=== PATIENT | male | born 1950 | race Two or more races ===

== ENCOUNTER 2021-07-09 15:09 | Inpatient (IN) | payer OTHER ==
[~2021-07-09] VITALS: Ht 177.8 cm; Wt 77.7 kg
[2021-07-09 15:36] LABS: Eosinophils # (auto) 0.1 10 ^3/uL (0-0.8); Monocytes # (auto) 0.4 10 ^3/uL (0-1.3); Nucleated Red Blood Cells % 0.1 %; White Blood Cell 5.5 10^3/uL (4.4-10.8)
[2021-07-09 15:38] LABS: Basophils # (auto) 0 10 ^3/uL (0-0.2); Basophils % (auto) 0.7 % (0.0-2.0); Eosinophils % (auto) 1.3 % (0.0-7.0); Hematocrit 31.3 % (41.0-53.0); Hemoglobin 9.6 g/dL (13.5-17.5); Lymphocytes # (auto) 0.6 10 ^3/uL (0.4-5.4); Lymphocytes % (auto) 11.7 % (10.0-50.0); Mean Corpuscular Hemoglobin 22.7 pg (28.0-32.0); Mean Corpuscular Hgb Conc. 30.7 g/dL (32.0-36.0); Mean Corpuscular Volume 73.9 fL (80.0-100.0); Monocytes % (auto) 6.8 % (0.0-12.0); Neutrophils # (auto) 4.4 10 ^3/uL (1.6-8.6); Neutrophils % (auto) 79.5 % (37.0-80.0); Red Blood Cells 4.24 10^6/uL (4.5-5.90); Red Cell Distribution Width 19.1 % (11.8-14.3)
[2021-07-09 15:59] LABS: Albumin 3.5 g/dL (3.4-5.0); Calcium 8.6 mg/dL (8.5-10.1); Magnesium 2.8 mg/dL (1.6-2.6); Potassium 4.4 mmol/L (3.5-5.1)
[2021-07-09] MEDS ORDERED: MORPHINE SULFATE INJECTION 2 MG/ML SYRG IM ONE (16:00)
[2021-07-09] MEDS ORDERED: ASPirin 81 mg TAB PO ONE (16:00)
[2021-07-09] MEDS ORDERED: SODIUM CHLORIDE 0.9% 500 ML IV ONE (16:00)
[2021-07-09] MEDS ORDERED: NITROGLYCERIN 0.4 MG SL TAB SL ONE (16:00)
[2021-07-09 16:18] LABS: BUN/Creatinine Ratio 18.5; Bilirubin, Total 0.6 mg/dL (0.2-1.0); Total Protein 7.3 g/dL (6.4-8.2)
[2021-07-09] MEDS ORDERED: ALPRAZolam 0.5 MG TAB PO ONE (17:00)
[2021-07-09 21:37] LABS: Urine Bacteria NONE SEEN /hpf (None Seen); Urine WBC 8 /hpf (0 - 3)
[2021-07-09 21:45] LABS: Urine Blood Trace /uL (Negative)
[2021-07-09] MEDS ORDERED: hydrALAZINE HCL 20 MG/ML VL IV PRN (23:00)
[2021-07-09] MEDS ORDERED: LORazepam 2MG/ML-1ML VIAL IV PRN (23:00)
[2021-07-09] MEDS ORDERED: cefTRIAXone 1GM/50ML D5W 50 ML IV ONE (23:00)
[2021-07-09] MEDS ORDERED: MORPHINE SULFATE 4 MG/ML SYR/VIAL IV PRN (23:00)
[2021-07-09] MEDS ORDERED: ACETAMINOPHEN 325 MG TAB PO PRN (23:00)
[2021-07-09] MEDS ORDERED: DOCUSATE SOD 100 MG CAP PO PRN (23:00)
[2021-07-09] MEDS ORDERED: HYDROcodone-ACET 5/325MG TAB PO PRN (23:00)
[2021-07-09] MEDS ORDERED: ONDANSETRON HCL 4 MG/2 ML VIAL IV PRN (23:00)
[2021-07-10] MEDS ORDERED: MORPHINE SULFATE INJECTION 2 MG/ML SYRG IV PRN
[2021-07-10 01:30] VITALS: BP 103/64
[2021-07-10 05:28] LABS: Eosinophils # (auto) 0.2 10 ^3/uL (0-0.8); Nucleated Red Blood Cells % 0.1 %
[2021-07-10 05:31] LABS: Basophils # (auto) 0.1 10 ^3/uL (0-0.2); Basophils % (auto) 1.1 % (0.0-2.0); Eosinophils % (auto) 3.4 % (0.0-7.0); Hematocrit 30.8 % (41.0-53.0); Hemoglobin 9.8 g/dL (13.5-17.5); Mean Corpuscular Hemoglobin 23.4 pg (28.0-32.0); Mean Corpuscular Volume 73.2 fL (80.0-100.0); Monocytes # (auto) 0.6 10 ^3/uL (0-1.3); Monocytes % (auto) 10.8 % (0.0-12.0); Neutrophils # (auto) 3.9 10 ^3/uL (1.6-8.6); Neutrophils % (auto) 67.7 % (37.0-80.0); Red Blood Cells 4.21 10^6/uL (4.5-5.90); Red Cell Distribution Width 19.4 % (11.8-14.3); White Blood Cell 5.7 10^3/uL (4.4-10.8)
[2021-07-10] MEDS: SODIUM CHLOR 0.9% PF (SALINE LOCK) 10ML VIAL/SYR IV SCH ×3 (05:50→22:03)
[2021-07-10 05:51] LABS: Calcium 8.1 mg/dL (8.5-10.1); Potassium 3.9 mmol/L (3.5-5.1)
[2021-07-10 05:57] LABS: BUN/Creatinine Ratio 19.6; Bilirubin, Total 0.7 mg/dL (0.2-1.0); Total Protein 6.2 g/dL (6.4-8.2)
[2021-07-10] MEDS ORDERED: FAMOTIDINE (10MG/ML) 2ML VL IV SCH (10:00)
[2021-07-10] MEDS: ASPirin 81 mg TAB PO SCH (10:24)
[2021-07-10] MEDS: ZINC SULFATE 220mg CAP or TAB PO SCH (10:24)
[2021-07-10] MEDS: CLOPIDOGREL BISULFATE 75 MG TAB PO SCH (10:25)
[2021-07-10] MEDS: ASCORBIC ACID 500 MG TAB PO SCH ×2 (10:25→22:04)
[2021-07-10] MEDS: METOPROLOL TARTRATE 25 MG TAB PO SCH ×2 (10:25→22:04)
[2021-07-10] MEDS: MULTIPLE VITAMIN TAB PO SCH (10:25)
[2021-07-10] MEDS: ENOXAPARIN SOD 80 MG/0.8ML SYRINGE SC SCH ×2 (10:26→22:04)
[2021-07-10] MEDS: FAMOTIDINE (10MG/ML) 2ML VL IV SCH (12:00)
[2021-07-10 16:57] VITALS: BP 127/99
[2021-07-10] MEDS: cefTRIAXone 1GM/50ML D5W 50 ML IV SCH (21:21)
[2021-07-10] MEDS: ATORVASTATIN 20 MG TAB PO SCH (22:03)
[2021-07-10 22:10] VITALS: BP 144/80
[2021-07-11 05:02] LABS: Basophils # (auto) 0 10 ^3/uL (0-0.2); Basophils % (auto) 0.9 % (0.0-2.0); Eosinophils # (auto) 0.3 10 ^3/uL (0-0.8); Eosinophils % (auto) 4.8 % (0.0-7.0); Hematocrit 30.2 % (41.0-53.0); Hemoglobin 9.5 g/dL (13.5-17.5); Lymphocytes # (auto) 1.2 10 ^3/uL (0.4-5.4); Lymphocytes % (auto) 22.7 % (10.0-50.0); Mean Corpuscular Hgb Conc. 31.4 g/dL (32.0-36.0); Mean Corpuscular Volume 73.3 fL (80.0-100.0); Monocytes # (auto) 0.7 10 ^3/uL (0-1.3); Monocytes % (auto) 12.5 % (0.0-12.0); Neutrophils # (auto) 3.2 10 ^3/uL (1.6-8.6); Neutrophils % (auto) 59.1 % (37.0-80.0); Red Blood Cells 4.12 10^6/uL (4.5-5.90); Red Cell Distribution Width 19.3 % (11.8-14.3); White Blood Cell 5.4 10^3/uL (4.4-10.8)
[2021-07-11 05:04] VITALS: BP 102/60
[2021-07-11 05:15] LABS: INR 1.01 (0.9-1.15); Partial Thromboplastin Time 32.9 sec (23.6-33.0)
[2021-07-11 05:23] LABS: Calcium 8.4 mg/dL (8.5-10.1); Potassium 4.1 mmol/L (3.5-5.1)
[2021-07-11 05:28] LABS: BUN/Creatinine Ratio 21.4
[2021-07-11] MEDS: SODIUM CHLOR 0.9% PF (SALINE LOCK) 10ML VIAL/SYR IV SCH ×3 (06:17→21:31)
[2021-07-11 09:00] VITALS: BP 102/66
[2021-07-11] MEDS: ENOXAPARIN SOD 80 MG/0.8ML SYRINGE SC SCH ×2 (10:00→21:32)
[2021-07-11] MEDS: FAMOTIDINE (10MG/ML) 2ML VL IV SCH (10:00)
[2021-07-11] MEDS: CLOPIDOGREL BISULFATE 75 MG TAB PO SCH (10:00)
[2021-07-11] MEDS: ASCORBIC ACID 500 MG TAB PO SCH ×2 (10:00→21:32)
[2021-07-11] MEDS: METOPROLOL TARTRATE 25 MG TAB PO SCH ×2 (10:00→21:32)
[2021-07-11] MEDS: ZINC SULFATE 220mg CAP or TAB PO SCH (10:00)
[2021-07-11] MEDS: ASPirin 81 mg TAB PO SCH (10:00)
[2021-07-11] MEDS: MULTIPLE VITAMIN TAB PO SCH (10:00)
[2021-07-11 13:00] VITALS: BP 126/71
[2021-07-11 17:00] VITALS: BP 109/67
[2021-07-11] MEDS: cefTRIAXone 1GM/50ML D5W 50 ML IV SCH (21:00)
[2021-07-11] MEDS: ATORVASTATIN 20 MG TAB PO SCH (21:31)
[2021-07-11 22:00] VITALS: BP 113/65
[2021-07-12 04:00] VITALS: BP 110/73
[2021-07-12] MEDS: SODIUM CHLOR 0.9% PF (SALINE LOCK) 10ML VIAL/SYR IV SCH ×3 (06:16→22:22)
[2021-07-12 08:14] VITALS: BP 107/65
[2021-07-12] MEDS: MULTIPLE VITAMIN TAB PO SCH (11:15)
[2021-07-12] MEDS: METOPROLOL TARTRATE 25 MG TAB PO SCH ×2 (11:15→22:23)
[2021-07-12] MEDS: ASCORBIC ACID 500 MG TAB PO SCH ×2 (11:15→22:23)
[2021-07-12] MEDS: CLOPIDOGREL BISULFATE 75 MG TAB PO SCH (11:15)
[2021-07-12] MEDS: ASPirin 81 mg TAB PO SCH (11:15)
[2021-07-12] MEDS: FAMOTIDINE (10MG/ML) 2ML VL IV SCH (11:15)
[2021-07-12] MEDS: ZINC SULFATE 220mg CAP or TAB PO SCH (11:15)
[2021-07-12] MEDS: ENOXAPARIN SOD 80 MG/0.8ML SYRINGE SC SCH ×2 (11:15→22:00)
[2021-07-12 12:00] VITALS: BP 145/84
[2021-07-12 17:00] VITALS: BP 142/77
[2021-07-12 22:00] VITALS: BP 114/69
[2021-07-12] MEDS: cefTRIAXone 1GM/50ML D5W 50 ML IV SCH (22:22)
[2021-07-12] MEDS: ATORVASTATIN 20 MG TAB PO SCH (22:22)
[2021-07-13] VITALS (8 sets, daily range): BP systolic 93–141; BP diastolic 58–85
[2021-07-13] MEDS: SODIUM CHLOR 0.9% PF (SALINE LOCK) 10ML VIAL/SYR IV SCH ×3 (05:54→21:09)
[2021-07-13] MEDS ORDERED: IODIXANOL 320MG/ML 100ML BTL IV ONE ×2 (09:23→10:21)
[2021-07-13] MEDS ORDERED: LIDOCAINE 2%HCL (LOCAL ANESTH.) INJ 20ML MDV ONE (09:23)
[2021-07-13] MEDS ORDERED: ANGIOMAX 250 MG VIAL IV ONE (10:05)
[2021-07-13] MEDS ORDERED: fentaNYL CITRATE 100 MCG/2 ML VL ONE (10:05)
[2021-07-13] MEDS ORDERED: SODIUM CHL 0.9% 0 ML ONE (10:06)
[2021-07-13] MEDS ORDERED: MIDAZOLAM HCL 2MG/2ML 2ml VIAL (1mg/ml) ONE (10:06)
[2021-07-13] MEDS: FAMOTIDINE (10MG/ML) 2ML VL IV SCH (21:05)
[2021-07-13] MEDS: ASCORBIC ACID 500 MG TAB PO SCH ×2 (21:06→21:09)
[2021-07-13] MEDS: ZINC SULFATE 220mg CAP or TAB PO SCH (21:06)
[2021-07-13] MEDS: ENOXAPARIN SOD 80 MG/0.8ML SYRINGE SC SCH ×2 (21:06→21:09)
[2021-07-13] MEDS: MULTIPLE VITAMIN TAB PO SCH (21:06)
[2021-07-13] MEDS: cefTRIAXone 1GM/50ML D5W 50 ML IV SCH (21:07)
[2021-07-13] MEDS: ATORVASTATIN 20 MG TAB PO SCH (21:07)
[2021-07-14 05:00] VITALS: BP 118/83
[2021-07-14] MEDS: SODIUM CHLOR 0.9% PF (SALINE LOCK) 10ML VIAL/SYR IV SCH ×3 (05:14→22:00)
[2021-07-14 05:44] LABS: Basophils # (auto) 0.1 10 ^3/uL (0-0.2); Monocytes # (auto) 0.8 10 ^3/uL (0-1.3)
[2021-07-14 05:52] LABS: Basophils % (auto) 1.1 % (0.0-2.0); Eosinophils # (auto) 0.4 10 ^3/uL (0-0.8); Eosinophils % (auto) 5.6 % (0.0-7.0); Hematocrit 29.9 % (41.0-53.0); Hemoglobin 9.6 g/dL (13.5-17.5); Lymphocytes # (auto) 0.7 10 ^3/uL (0.4-5.4); Lymphocytes % (auto) 11.5 % (10.0-50.0); Mean Corpuscular Hemoglobin 23.5 pg (28.0-32.0); Mean Corpuscular Hgb Conc. 32.2 g/dL (32.0-36.0); Mean Corpuscular Volume 73.1 fL (80.0-100.0); Monocytes % (auto) 12.2 % (0.0-12.0); Neutrophils # (auto) 4.4 10 ^3/uL (1.6-8.6); Neutrophils % (auto) 69.6 % (37.0-80.0); Red Blood Cells 4.09 10^6/uL (4.5-5.90); Red Cell Distribution Width 19.9 % (11.8-14.3); White Blood Cell 6.3 10^3/uL (4.4-10.8)
[2021-07-14 05:59] LABS: INR 0.96 (0.9-1.15); Partial Thromboplastin Time 30.3 sec (23.6-33.0)
[2021-07-14 06:08] LABS: BUN/Creatinine Ratio 19.7; Calcium 8.5 mg/dL (8.5-10.1); Magnesium 2.3 mg/dL (1.6-2.6); Potassium 4.4 mmol/L (3.5-5.1)
[2021-07-14 09:23] VITALS: BP 105/62
[2021-07-14] MEDS: ASPirin 81 mg TAB PO SCH (09:27)
[2021-07-14] MEDS: FAMOTIDINE (10MG/ML) 2ML VL IV SCH (09:27)
[2021-07-14] MEDS: ZINC SULFATE 220mg CAP or TAB PO SCH (09:28)
[2021-07-14] MEDS: MULTIPLE VITAMIN TAB PO SCH (09:28)
[2021-07-14] MEDS: ASCORBIC ACID 500 MG TAB PO SCH ×2 (09:28→22:00)
[2021-07-14] MEDS: METOPROLOL TARTRATE 25 MG TAB PO SCH ×2 (09:28→22:00)
[2021-07-14] MEDS: CLOPIDOGREL BISULFATE 75 MG TAB PO SCH ×2 (09:28→09:32)
[2021-07-14] MEDS: ENOXAPARIN SOD 80 MG/0.8ML SYRINGE SC SCH ×2 (09:28→22:00)
[2021-07-14 12:41] VITALS: BP 111/69
[2021-07-14 16:27] VITALS: BP 111/70
[2021-07-14 20:00] VITALS: BP 92/61
[2021-07-14] MEDS ORDERED: SODIUM CHLORIDE 0.9% 250 ML IV ONE (21:15)
[2021-07-14] MEDS: ATORVASTATIN 20 MG TAB PO SCH (22:00)
[2021-07-15] VITALS (11 sets, daily range): BP systolic 89–153; BP diastolic 58–87
[2021-07-15] MEDS: SODIUM CHLOR 0.9% PF (SALINE LOCK) 10ML VIAL/SYR IV SCH ×3 (07:00→21:24)
[2021-07-15] MEDS: FAMOTIDINE (10MG/ML) 2ML VL IV SCH (09:25)
[2021-07-15] MEDS: ZINC SULFATE 220mg CAP or TAB PO SCH (09:25)
[2021-07-15] MEDS: METOPROLOL TARTRATE 25 MG TAB PO SCH ×2 (09:25→21:26)
[2021-07-15] MEDS: ASPirin 81 mg TAB PO SCH (09:25)
[2021-07-15] MEDS: ASCORBIC ACID 500 MG TAB PO SCH ×2 (09:26→21:25)
[2021-07-15] MEDS: MULTIPLE VITAMIN TAB PO SCH (09:26)
[2021-07-15] MEDS: NITROGLYCERIN 0.4 MG SL TAB SL PRN (09:26)
[2021-07-15] MEDS: CLOPIDOGREL BISULFATE 75 MG TAB PO SCH (09:26)
[2021-07-15] MEDS: ENOXAPARIN SOD 80 MG/0.8ML SYRINGE SC SCH ×2 (09:29→21:26)
[2021-07-15] MEDS ORDERED: HEPARIN IN NS 1000Units/500mL 1,500 ML ONE (10:27)
[2021-07-15] MEDS ORDERED: LIDOCAINE 2%HCL (LOCAL ANESTH.) INJ 20ML MDV ONE (10:27)
[2021-07-15] MEDS ORDERED: IOHEXOL 350 MG/ML 100ML IJ ONE (10:27)
[2021-07-15] MEDS ORDERED: fentaNYL CITRATE 100 MCG/2 ML VL ONE (13:34)
[2021-07-15] MEDS ORDERED: SODIUM CHL 0.9% 50 ML ONE (13:34)
[2021-07-15] MEDS ORDERED: ANGIOMAX 250 MG VIAL IV ONE (13:34)
[2021-07-15] MEDS ORDERED: MIDAZOLAM HCL 2MG/2ML 2ml VIAL (1mg/ml) ONE (13:34)
[2021-07-15] MEDS ORDERED: EPINEPHrine HCL 1 MG/10 ML SYRG ONE (14:10)
[2021-07-15] MEDS ORDERED: CLOPIDOGREL 300 MG TAB ONE (14:58)
[2021-07-15] MEDS: ATORVASTATIN 20 MG TAB PO SCH (21:25)
[2021-07-16 04:37] VITALS: BP 111/67
[2021-07-16] MEDS: NITROGLYCERIN 0.4 MG SL TAB SL PRN (04:56)
[2021-07-16] MEDS: SODIUM CHLOR 0.9% PF (SALINE LOCK) 10ML VIAL/SYR IV SCH ×2 (05:09→14:00)
[2021-07-16 07:13] LABS: BUN/Creatinine Ratio 21.6; Calcium 8.4 mg/dL (8.5-10.1); Potassium 4.2 mmol/L (3.5-5.1)
[2021-07-16 09:00] VITALS: BP 116/70
[2021-07-16] MEDS ORDERED: RANOLAZINE ER 500 MG TAB PO ONE (10:15)
[2021-07-16] MEDS: FAMOTIDINE (10MG/ML) 2ML VL IV SCH (11:05)
[2021-07-16] MEDS: METOPROLOL TARTRATE 25 MG TAB PO SCH (11:07)
[2021-07-16] MEDS: ZINC SULFATE 220mg CAP or TAB PO SCH (11:07)
[2021-07-16] MEDS: ASPirin 81 mg TAB PO SCH (11:07)
[2021-07-16] MEDS: CLOPIDOGREL BISULFATE 75 MG TAB PO SCH (11:08)
[2021-07-16] MEDS: ASCORBIC ACID 500 MG TAB PO SCH (11:08)
[2021-07-16] MEDS: ENOXAPARIN SOD 80 MG/0.8ML SYRINGE SC SCH (11:08)
[2021-07-16] MEDS: MULTIPLE VITAMIN TAB PO SCH (11:08)
[2021-07-16 12:40] VITALS: BP 123/75
[2021-07-16] MEDS ORDERED: RANOLAZINE ER 500 MG TAB PO SCH (22:00)
== END 2021-07-16 16:30 | disposition home or self-care (01) | DRG 247 ==
LOC: EDBD 15:09 → ER 15:09 → TELE 23:59 → TELE-CENTR 07-10 01:24
PROVIDERS: ADMIT Nurse Practitioner Family; ATTEND Internal Medicine Geriatric Medicine
PROC: 04HK33Z Insertion of Infusion Device into Right Femoral Artery, Percutaneous Approach (ICD-10-PCS; principal; 2021-07-13)
PROC: 4A023N7 Measurement of Cardiac Sampling and Pressure, Left Heart, Percutaneous Approach (ICD-10-PCS; 2021-07-13)
PROC: B211YZZ Fluoroscopy of Multiple Coronary Arteries using Other Contrast (ICD-10-PCS; 2021-07-13)
PROC: B215YZZ Fluoroscopy of Left Heart using Other Contrast (ICD-10-PCS; 2021-07-13)
PROC: B41DYZZ Fluoroscopy of Aorta and Bilateral Lower Extremity Arteries using Other Contrast (ICD-10-PCS; 2021-07-13)
PROC: B312YZZ Fluoroscopy of Left Subclavian Artery using Other Contrast (ICD-10-PCS; 2021-07-13)
PROC: 027136Z Dilation of Coronary Artery, Two Arteries with Three Drug-eluting Intraluminal Devices, Percutaneous Approach (ICD-10-PCS; 2021-07-15)
DX: I21.4 Non-ST elevation (NSTEMI) myocardial infarction (principal); N39.0 Urinary tract infection, site not specified; I25.110 Atherosclerotic heart disease of native coronary artery with unstable angina pectoris; I10 Essential (primary) hypertension; E78.5 Hyperlipidemia, unspecified; N40.0 Benign prostatic hyperplasia without lower urinary tract symptoms; I25.5 Ischemic cardiomyopathy; Z20.822 Contact with and (suspected) exposure to COVID-19; Z82.49 Family history of ischemic heart disease and other diseases of the circulatory system; Z86.73 Personal history of transient ischemic attack (TIA), and cerebral infarction without residual deficits; Z95.1 Presence of aortocoronary bypass graft; Z98.61 Coronary angioplasty status
CPT/HCPCS: 36225; 36415; 71045; 75600; 75710; 80048; 80053; 80061; 81001; 83735; 84484; 85025; 85610; 85730; 87426; 92928; 93005; 93306; 93458; 96361; 96365; 99152; 99153; C1874; G0378; J0696; J2250; J3490; Q9967